=== PATIENT | male | born 1935 | race Caucasian/White ===

== ENCOUNTER 2016-10-11 09:30 | Observation (INO) | payer MEDICARE, OTHER ==
[~2016-10-11] VITALS: Ht 177.8 cm; Wt 96.7 kg
--- NOTE | ~2016-10-11 | CON ---
PATIENT'S NAME: ISHA BECKETT [facility] AGE: 80 Y [address] ROOM: [address] [place], [place] [address] LOCATION: GPCU ADMIT DATE: 10/11/2016 Consultation DISCHARGE DATE: FAMILY PHYSICIAN: Yonathan Campos ATTENDING PHYSICIAN: RHIANNON EDWARDS DATE OF CONSULTATION: 10/11/2016 FAMILY PHYSICIAN: Dr. Jim Campos and [facility] REASON FOR CONSULTATION: Elevated cardiac enzymes. HISTORY OF PRESENT ILLNESS: This is an 80-year-old male known to Dr. Tabor with a history of mitral valve regurgitation. Had an echocardiogram done 09/19/2016 showing EF of 55% to 60% with dilated RV, glvbpcpz-aj-djatxl MR. He carries a history of hypertension, gastric esophageal reflux as well. He reports yesterday he was taken dogs for run. He was in golf cart and the dogs were running behind him. All of the sudden, he started experiencing very heavy chest discomfort with severe shortness of breath and diaphoresis. It concerned him enough to call his who came and got him and then he called 911. He was transported to the [facility] in [place], [place] and on the way was given four baby aspirins. In the ER, he received nitroglycerin and his chest pain was resolved. His initial EKG showed ST depression in V4, V5, and V6. His initial cardiac enzymes were normal, but the 2nd set did elevate with CPK of 116. His troponin I peaked at 0.56. He now is completely pain free. He denies any exertional chest pain. His main complaint is that he wants a cup of coffee. Previously, he denies any problems with exertional chest pain. He had had some complains of mild shortness of breath with activity. He states he does not have stamina that he used to have. He denies problems with orthopnea, PND, or pedal edema. He denies problems with palpitations, lightheadedness, or dizziness. On admission to the [facility], his initial potassium was 3.3, that was replaced and today his potassium 3.6. His initial creatinine was 1.44, now was 1.12. Hemoglobin was 12.5. PAST MEDICAL HISTORY: 1. Lkbidddm-wt-hrhgzm mitral valve regurgitation. 2. Diastolic heart failure with known RV dilation. 3. Essential hypertension. 4. Macular degeneration. 5. 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 6. Hard of hearing. 7. Seasonal allergies. PATIENT'S NAME: ISHA BECKETT [facility] AGE: 80 Y [address] ROOM: [address] [place], [place] [address] LOCATION: [facility] ADMIT DATE: 10/11/2016 Consultation DISCHARGE DATE: FAMILY PHYSICIAN: Yonathan Campos ATTENDING PHYSICIAN: RHIANNON EDWARDS 8. 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 9. Osteoarthritis. PAST SURGICAL HISTORY: 1. Tonsillectomy and adenoidectomy. 2. Umbilical hernia repair. 3. Bilateral knee replacements one in 2005, the other in 2007. 4. Bilateral cataract surgery. 5. Abdominoplasty. ALLERGIES: NONE TO MEDICATION. CURRENT HOME MEDICATIONS: 1. Amlodipine 10 mg daily. 2. Hydrochlorothiazide 12.5 mg daily. 3. Ranitidine 10 mg every day. 4. Omeprazole 20 mg daily. FAMILY HISTORY: He is . He does have children, but refuses to state how many or whether or not they have any health problems. His mother and father are . He refuses to give health history. Brothers all from lung issues. SOCIAL HISTORY: He is . He has a remote history of smoking tobacco. He smoked a pack of cigarettes a day for 40 years. He quit in 1976. He states that he drinks alcohol approximately four days a week, two drinks a day. REVIEW OF SYSTEMS: HEAD: No history of headache eyes no blurred vision. He has macular degeneration. Wears corrective lenses. EARS: He wears a left hearing aid. NOSE: No epistaxis or rhinorrhea. MOUTH: No gingival bleeding. THROAT: Denies sore throat, hoarseness, or difficulty swallowing. PULMONARY: He denies cough or hemoptysis. GI: He has problems with gastroesophageal reflux. He has had EGD on 09/07/2016. : Negative for urinary frequency or urgency. MUSCULOSKELETAL: He has osteoarthritis. SKIN: He has had skin cancer removed from the ear. NEUROLOGIC: He denies numbness or tingling or feelings of off balance. PSYCHIATRIC: He does have history of depression. He has stopped his medications. PATIENT'S NAME: BECKETT, [facility] AGE: 80 Y [address] ROOM: [address] [place], [place] [address] [facility] ADMIT DATE: 10/11/2016 Consultation DISCHARGE DATE: FAMILY PHYSICIAN: Yonathan Campos ATTENDING PHYSICIAN: RHIANNON EDWARDS PHYSICAL EXAMINATION: VITAL SIGNS: His blood pressure is 130/67, heart rate 48 and regular sinus rhythm. His weight is 207, height 70 inches tall. SKIN: Warm, dry, and pink. HEENT: Pupils equal, round, and react briskly. EOMs are intact. NECK: Soft and supple. No lymphadenopathy. No thyromegaly. JVD is flat. LUNGS: Lung sounds were clear. There is no evidence of wheezes, rales, or rhonchi. CV: Regular with a normal S1, S2 with an apical mitral regurgitant murmur. ABDOMEN: Soft. Bowel sounds are present. EXTREMITIES: Show no peripheral edema. NEUROLOGIC: Cranial nerves 2-12 are grossly intact. PSYCHIATRIC: Alert and oriented. LABORATORY DATA: Are per HPI. His EKG showing a regular sinus rhythm with an incomplete bundle branch block. ASSESSMENT: 1. Chest pain with elevated cardiac enzymes. We will plan on doing a heart catheterization today. 2. Mitral valve regurgitation. Continue with afterload reduction. 3. Hypertension. Continue the current medications. The assessment and plan, history of present illness, and physical exam are as per Dr. Tabor. Further recommendations will be forthcoming. GURU GAONA APRN FOR MD MALGORZATA JENKINS/aminah /[id number] d: 10/11/16 1402 t: 10/28/16 1159, CONSULTATION REPORT
--- NOTE | ~2016-10-11 | CATH ---
Cardiac Diagnostic Report Demographics Patient Name SOPHY Yao Gender Male Date of 1935 Age 80 year(s) Patient Number [id number] Date of Study 10/11/2016 Visit Number [id number] Room Number G[address] [place] [id number] Ht 177.8 cm Wt 90.72 kg Referring Carola Ott Primary Physician Physician Performing Leander Isbell MD Secondary Physician Physician Diagnostic Leander Isbell MD Assisting Physician Physician Interventional Physician Monomer Recovery Operator Physician Findings and Conclusions Diagnostic Findings and Conclusion Non-obstructive CAD Endothelial Dysfunction Diagnostic Recommendations Medical Therapy Routine post Perclose instructions Procedure Description The patient was brought to the diagnostic cardiac catheterization-EP laboratory in the fasting, non-sedated state. Informed consent was obtained in the written and verbal form after the risks and benefits were explained. The patient had no further questions and agreed to proceed. The planned puncture-incision site(s) were shaved and prepped with ChloraPrep and draped in the usual sterile manner. Conscious sedation, supplemental oxygen, and pain control medications were delivered by a registered nurse under physician guidance. Surface ECG rhythm, blood pressure measurement, and pulse oximetry were monitored throughout the procedure. Arterial access. The access site was infiltrated with lidocaine. The vessel was entered with the Seldinger technique. A sheath was advanced into the vessel and used for catheter placement. Selective left coronary angiography. A catheter was advanced into the left coronary vessel ostium under Fluoroscopic guidance. Contrast was injected by hand. Images were obtained in multiple projections. Selective right coronary angiography. A catheter was advanced into the right coronary vessel ostium under fluoroscopic guidance. Contrast was injected by hand. Images were obtained in multiple projections. Left heart catheterization with ventriculography. A catheter was advanced across the aortic valve to the left ventricle under fluoroscopic guidance. Resting hemodynamics were obtained. With the catheter at the left ventricular apex, contrast was injected. Images were obtained in VENEZUELAN projections. Post-ventriculography LV pressure was obtained. The catheter was gradually withdrawn into the aorta with continuous pressure recording. Arterial artery hemostasis was achieved. The patient was transferred to a regular nursing floor via cart accompanied by a nurse. The patient left the laboratory in stable condition. Diagnostic Cath Status: Urgent Procedure Procedure Type Diagnostic procedure:Ventriculogram:, Left, Angiography:, Coronary Angios w/LHC Indications: Non-ST elevation OK. The procedure was explained in detail to the patient. Risks, complications and alternative treatments were reviewed. Written consent was obtained. Medications Reviewed with Patient prior to Procedure. Angiographic Findings Dominance: Right Cardiac Arteries and Lesion Findings LMCA: Normal (0% Stenosis).Large LAD: Large, mid-mild diffuse disease with CRISTIANO 2 flow. Diag 1 is medium and okay. Lesion on Mid LAD: Mid subsection.50% stenosis . LCx: Normal (0% Stenosis).Large. OM 1 is large and normal. RCA: Normal (0% Stenosis).Very large. PL and PDA are both large and normal. Coronary Tree Procedure Data Procedure Date Date: 10/11/2016Start: 11:39 AMEnd: 12:06 PM Entry Locations - Retrograde Percutaneous access was performed through the Right Femoral artery (Primary location). A 6 Fr sheath was inserted. Hemostasis was successfully obtained using Perclose ProGlide (YPlan). Closure Comments: Deployed by Shirley SHERMAN. Procedure Medications Order and Administration + + +---------+ + !Time !Medication !Dosage !Route ! + + +---------+ + !10/11/2016 11:37 AM !Versed !1 mg !I.V. ! + + +---------+ + !10/11/2016 11:37 AM !Fentanyl !50 mcg !I.V. ! + + +---------+ + !10/11/2016 11:46 AM !Oxygen !2 l/min !NC ! + + +---------+ + !10/11/2016 11:52 AM !Heparin (ACC_3) ! !I.V. drip ! + + +---------+ + !10/11/2016 11:52 AM !Nitroglycerin ! !I.V. drip ! + + +---------+ + !10/11/2016 12:00 PM !Oxygen ! !NC ! + + +---------+ + Devices Used - A6 Fr. BS JL 4 Diag. Catheterwas used for:Left coronary angiography. - A6 Fr. BS JR 4 Diag. Catheterwas used for:Right coronary angiography. - A6 Fr. BS Angled Pigtail Diag. Catheterwas used for:Left ventriculography. Contrast Material - Isovue 204234 ml Fluoroscopy Time: Diagnostic: 2:54 minutes. Total: 2:54 minutes. Fluoroscopy Dose: Diagnostic: 1164 mGy. Total: 1164 mGy. Estimated Blood Loss: 10 ml. Medical History Performed Procedures and Imaging Results - No ACC stress or imaging studies were performed. Allergies - No known allergies. Risk Factors The patient risk factors include:hypertension, last creatinine: 1.1 mg/dl, creatinine clearance: 68.73 ml/min and former tobacco use. Admission Data Admission Date: 10/11/2016 Admission Time: 10:03 AM Admit Source: [facility] Insurance Payors: Medicare. Admission Medications + +------+-------+ + + + + !Medication!Dosage!Times !Last !Last !Administered !Comments ! ! ! !Per Day!Delivery !Delivery ! ! ! ! ! ! !Date !Time ! ! ! + +------+-------+ + + + + !Aspirin ! ! ! ! !Yes ! ! !(any) ! ! ! ! ! ! ! + +------+-------+ + + + + Clinical Evaluation Leading to Procedure - The patient's CAD presentation was assessed as: Non-STEMI. - The patient's anginal syndrome during the past two weeks was assessed as: Class IV according to the [place] Cardiovascular Society Classification System (CCS). VA LV function assessed as:Abnormal. Ejection Fraction - 10/11/2016 - Method: Echocardiography. EF%: 50. LVA Segment Contractility 1 - Normal 3 - Mild 5 - Severe 7 - Dyskinesis hypokinesis hypokinesis 2 - 4 - Moderate 6 - Akinesis 8 - Aneurysm Hypokinesis hypokinesis Hemodynamics Condition: Rest O2 Consumption: Estimated: 225.96Heart Rate: 54 bpm Pressures (mmHg) +-----+ + !Site !Pressure ! +-----+ + !AO !123/60 (84) ! +-----+ + !LV !129/9 ,23 ! +-----+ + !LV !123/8 ,24 ! +-----+ + !LV !123/3 ,24 ! +-----+ + !LV !124/5 ,25 ! +-----+ + !AO !123/56 (81) ! +-----+ + !LV !124/4 ,23 ! +-----+ + Valve Gradients and Areas + +---------+---------+---------+ +---------+ + !Valve !Peak !Mean !Area !Index !Flow !Source ! + +---------+---------+---------+ +---------+ + !Aortic !1 !0 ! ! ! ! ! + +---------+---------+---------+ +---------+ + !Aortic !1 !0 ! ! ! ! ! + +---------+---------+---------+ +---------+ + Shunts Oxygen Values O2 Capacity 149.6 O2 Consumption 225.96 Discharge Data Discharge Date: 10/11/2016 Hospital Status: Inpatient Signatures dtt: Sukhi Tabor (cardio) dtd: 10/11/16 1139 Physician Self Edit
[2016-10-11] MEDS ORDERED: I-VITE TABLET1 EACH PO (10:23)
[2016-10-11] MEDS ORDERED: NORVASC10 MG PO (10:23)
[2016-10-11] MEDS ORDERED: PRILOSEC20 MG PO (10:24)
[2016-10-11] MEDS ORDERED: CLARITIN10 MG PO (10:24)
[2016-10-11] MEDS ORDERED: HYDRODIURIL25 MG PO (10:52)
--- NOTE | 2016-10-11 10:54 | NUR ---
PT is 80 y/o male admit for chest pain and shortness breath for hospitalist and Dr.DJ Tabor. Pt is not forthcoming with his health hx. H&P from [place] states he was out with his dogs yesterday and became sweaty and started having chest pain, suddenly. His helped him back to the house and called the unit. PT taken to [place] [facility]. Chest pain subsided after 4 baby ASA given by EMT's. Hx htn,mac degener,bradycardia,mitral valve regurg,gerd,heartburn,OA. No allergies. Plan for heart cath today.
[2016-10-11] MEDS ORDERED: ASPIRIN325 MG PO (16:58)
[2016-10-11] MEDS ORDERED: ZESTRIL2.5 MG PO (16:59)
[2016-10-11] MEDS ORDERED: ZOCOR40 MG PO (17:01)
--- NOTE | 2016-10-11 17:24 | NUR ---
PT DISMISSED TO HOME WITH TO DRIVE, AT TIME OF DC PT IS AL;ERT AND ORIENTED, VERY ANXIOUS ABOUT GETTING OUT OF HERE AND PACING INHALLS, PLEASENT BUT NERVOUS. STEADY ON FEET WHEN UP, DENIES NEED OR PAIN. LUNGS CLEAR ABDOMEN SOFT AND NONTENDER WITH PRESENT BOWEL SOUNDS, PULSES STRONG HE HAS NO EDEMA. ALL DISMISSAL INSTRUCTIONS GIVEN TO PT, IN CAR DOWNSTAIRS. DIMSSAL INSTRUCTIONS, GROIN CARE, PRESCRIPTIONS, MEDICATIONS AND MEDICATION INSTRUCTIONS, FOLLOW UP CARE AND APPONTMENTS ALL WENT OVER WITH PT. SPECIFICALLY TOLD PT TO GO TO THE ORD CLINIC NEXT TUESDAY FOR FOLLOW UP APPOINTMENT WITH DR ROBLEDO. W/C TO [facility] FOR DC TO HOME.
== END 2016-10-11 17:20 | disposition disaster alternative care site (69) ==
LOC: EDSTATUS 09:30 → GPCU 09:30
PROVIDERS: ADMIT Internal Medicine
DX: I21.4 Non-ST elevation (NSTEMI) myocardial infarction (principal); I25.10 Atherosclerotic heart disease of native coronary artery without angina pectoris; I34.0 Nonrheumatic mitral (valve) insufficiency; I10 Essential (primary) hypertension; I50.30 Unspecified diastolic (congestive) heart failure; H35.30 Unspecified macular degeneration; Z85.828 Personal history of other malignant neoplasm of skin; M19.90 Unspecified osteoarthritis, unspecified site; Z87.891 Personal history of nicotine dependence; Z98.890 Other specified postprocedural states; Z96.653 Presence of artificial knee joint, bilateral; Z79.899 Other long term (current) drug therapy
CPT/HCPCS: C1760; G0378; J1644; J2250; J3010; J7030